=== PATIENT | female | born 2005 | race Caucasian/White ===

== ENCOUNTER 2025-06-12 20:05 | Inpatient (IN) | payer BC, MEDICAID, SELFPAY ==
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
--- OUTSIDE RECORDS SUMMARY | 2024-07-15 03:30 | XMS_ITS ---
Author Organization [facility] dow[address] Address [address] [place] [address] Care Team Providers Care Fur Remodeler Name Role Phone Elie Landin Unavailable [phone] Elie Landin DO Unavailable Unavailable Encounters Encounter Location Date Provider Diagnosis [facility] [address] [place], [place] [id number] 07/15/2024 Elie Landin Plan Of Treatment No Information Progress Notes * Krista MULLERDOB:[birth year] (20 yo F)Acc No.[id number]:07/15/2024 Patient: Krista JIM Provider: Sarah Landin DO :2005 A ge:19 Y S ex:Female Date:07/15/2024 Phone: Address:[address] [place] [address] [place], [id number] * * Electronic signature of Elie Landin DO on 06/12/2025 at 08:13 PM CDT Sign off status: Pending * Provider: Sarah Landin DO Date: 1 Generated for Gloriai ng/Famariyag/eTransmitting on: 0 06/12/2025 08:13 PM CDT
--- OUTSIDE RECORDS SUMMARY | 2024-07-16 10:15 | XMS_ITS ---
Author Organization [facility] Address [address] [place] [address] Care Team Providers Care Linen Aide Name Role Phone Elie Landin Unavailable [phone] Elie Landin DO Unavailable Encounters Encounter Location Date Provider Diagnosis OR 07/16/2024 Elie Landin Plan Of Treatment No Information Progress Notes * Krista MULLERDOB:[birth year] (20 yo F)Acc No.[id number]:07/16/2024 Patient: Janine LUJANLoren Krista Provider: Sarah Landin DO :2005 A ge:19 Y S ex:Female Date:07/16/2024 Phone: Address:[address] [place] [address] [place], [place]-[id number] * * Electronic signature of Elie Landin DO on 06/12/2025 at 08:13 PM CDT Sign off status: Pending * Provider: Sarah Landin DO Date: 1 Generated for Massimo ng/Famariyag/eTransmitting on: 0 06/12/2025 08:13 PM CDT
--- OUTSIDE RECORDS SUMMARY | 2024-08-06 05:45 | XMS_ITS ---
Author Organization [facility] Address [address] [place] [address] Care Team Providers Care Ladle Handler Name Role Phone Elie Landin Unavailable [phone] Elie Landin DO Unavailable Encounters Encounter Location Date Provider Diagnosis [facility] [place] [address] 08/06/2024 Elie Landin Plan Of Treatment No Information Progress Notes * Krista GIBSONDOB:[birth year] (20 yo F)Acc No.[id number]:08/06/2024 Patient: Krista JIM Provider: Sarah Landin DO :2005 A ge:19 Y S ex:Female Date:08/06/2024 Phone: Address:[address] [place] [address] [id number] Subjective: * Chief Complaints: * * Medical History: Objective: * Vitals: Assessment: Plan: * Treatment: * * Electronic signature of Elie Landin DO on 06/12/2025 at 08:13 PM CDT Sign off status: Pending * Provider: Sarah Landin DO Date: 10/06/2023 Generated for Massimo heller/Famariyag/eTransmitting on: 0 06/12/2025 08:13 PM CDT
[2025-06-12 20:06] VITALS: BP 124/78; PULSE 115; RESP 16; TEMP 36.5; O2SAT 97; BMI 43.2
--- NOTE | 2025-06-12 20:11 | XRR_ITS ---
PROCEDURE INFORMATION: Exam: XR Abdomen Exam date and time: 06/12/2025 8:26 PM Age: 20 years old Clinical indication: Other: Foreign body; Additional info: Fb TECHNIQUE: Imaging protocol: Radiologic exam of the abdomen. Views: Frontal supine view of the abdomen. 1 View. COMPARISON: CR (CHEST, ) 06/12/2025 8:24 PM FINDINGS: Heart/Mediastinum: A 6.4 cm radiopaque foreign body is seen in the region of the gastric lumen, just beyond the GE junction. Gastrointestinal tract: Normal. No bowel dilation. Bones/joints: Unremarkable. XR/XR KUB [id number] IMPRESSION: Retained gastric radiopaque foreign body, likely correlating to the provided clinical history of swallowed nail clippers. Gastrointestinal consultation and direct visualization via endoscopy is warranted.
--- NOTE | 2025-06-12 20:11 | XRR_ITS ---
PROCEDURE INFORMATION: Exam: XR Chest Exam date and time: 06/12/2025 8:24 PM Age: 20 years old Clinical indication: Other: Foreign body; Additional info: Fb TECHNIQUE: Imaging protocol: Radiologic exam of the chest. Views: 1 view. COMPARISON: No relevant prior studies available. FINDINGS: Lungs: Unremarkable. No consolidation. Pleural spaces: Unremarkable. No pleural effusion. No pneumothorax. Heart/Mediastinum: Unremarkable. No cardiomegaly. Bones/joints: Unremarkable. Soft tissues: No radiopaque foreign body is identified within the imaged chest. XR/XR chest 1V portable [id number] IMPRESSION: 1. No retained radiopaque foreign bodies. Recommend KUB for evaluation of the upper/lower GI tract. 2. No acute pulmonary process.
--- NOTE | 2025-06-12 20:13 | W.ED.PSYCHS ---
HPI - Psych General: Chief Complaint: Psychiatric Symptoms Stated Complaint: SI Time Seen by Provider: 06/12/25 20:06 Source: patient Mode of arrival: ambulatory Limitations: no limitations History of Present Illness: 20-year-old female who is here with suicidality. States she is a good Yazdanism and gotten kicked out and is having suicidal thoughts she states she had swallowed some nail clippers trying to harm herself. She denies any previous psych admissions denies any worse improved factors. Associated symptoms: Reports depression and suicidal ideation Related Data Allergies Allergy/AdvReac Type Severity Reaction Status Date / Time acetaminophen (From Tylenol) Allergy Unknown Verified 06/12/25 20:15 hydroxyzine (From Vistaril) Allergy Unknown Verified 06/12/25 20:15 ibuprofen (From Motrin) Allergy Unknown Verified 06/12/25 20:14 morphine Allergy Unknown Verified 06/12/25 20:14 Review of Systems Const: Denies: fever(s), chills, body aches or change in appetite ENMT: Denies: throat pain or dental pain Card: Denies: chest pain Resp: Denies: dyspnea GI: Denies: abdominal pain, nausea, vomiting or diarrhea Musc: Denies: neck pain or back pain Skin/Breast: Denies: rash Neuro: Denies: headache(s) Psych: Reports: depression and suicidal ideation Physical Exam Const: COMMON NORMALS: no acute distress, patient oriented x3 and healthy appearing HENMT: COMMON NORMALS: normocephalic and atraumatic HEAD & SCALP: normocephalic and atraumatic Eye: COMMON NORMALS: conjunctivae normal CONJUNCTIVA: Yes conjunctivae normal Neck/C-Spine: COMMON NORMALS: full ROM and supple Chest: COMMONS NORMALS: normal inspection of the chest Resp: COMMON NORMALS: normal respiratory effort Cardio: COMMON NORMALS: regular rate RATE: regular rate Extremity: COMMON NORMALS: normal to inspection and full ROM Neuro: COMMON NORMALS: patient oriented x3, moves all extremities and no focal motor deficits Psych: COMMON NORMALS: mental status grossly normal, Normal thought process present and cooperative THOUGHT PROCESS: Normal thought process present THOUGHT CONTENT: Yes Suicidality present Skin: COMMON NORMALS: no rashes or lesions noted and no wounds GENERAL SKIN EXAM: no rashes or lesions noted Course Vital Signs: Vital signs: Vital Signs Temperature 97.7 F 06/12/25 20:06 Pulse Rate 115 H 06/12/25 20:06 Respiratory Rate 16 06/12/25 20:06 Blood Pressure 124/78 06/12/25 20:06 Pulse Oximetry 97 06/12/25 20:06 Oxygen Delivery Me thod Room Air 06/12/25 20:06 MDM - Psych Medical Decision Making Patient presents here with suicidal ideations she is medically cleared x-ray KUB does show foreign body likely nail couplers is already in her intestine she should be able to pass this spoke to psychiatrist will admit Medical Records I reviewed the patient's medical records. Lab Data I reviewed the patient's lab results. 06/12/25 20:15 06/12/25 20:15 Laboratory Results WBC 6.56 10^3/uL (4.5-13.0) 06/12/25 20:15 RBC 3.80 10^6/uL (3.85-5.65) L 06/12/25 20:15 Hgb 10.60 g/dL (12.4-14.8) L 06/12/25 20:15 Hct 33.5 % (36-47) L 06/12/25 20:15 MCV 88.2 fl (85-98) 06/12/25 20:15 MCH 27.9 pg (27-33) 06/12/25 20:15 MCHC 31.6 g/dL (30-55) 06/12/25 20:15 RDW 13.9 % (12.1-15.1) 06/12/25 20:15 Plt Count 211 10^3/cmm (157-399) 06/12/25 20:15 MPV 9.9 fL (7.4-10.4) 06/12/25 20:15 Neut % (Auto) 55.2 % 06/12/25 20:15 Lymph % (Auto) 32.3 % 06/12/25 20:15 [place]ock[place] % (Auto) 9.6 % 06/12/25 20:15 Eos % (Auto) 2.1 % 06/12/25 20:15 Baso % (Auto) 0.5 % 06/12/25 20:15 Neut # (Auto) 3.62 10^3/uL (1.8-8.0) 06/12/25 20:15 Lymph # (Auto) 2.1 10^3/uL (1.5-6.5) 06/12/25 20:15 [place] # (Auto) 0.6 10^3/uL (0.2-0.9) 06/12/25 20:15 Eos # (Auto) 0.1 10^3/uL (0.0-0.8) 06/12/25 20:15 Baso # (Auto) 0.0 10^3/uL (0.0-0.1) 06/12/25 20:15 Nucleated RBC % (auto) 0 % 06/12/25 20:15 Nucleated RBCs # 0.0 /100WBC 06/12/25 20:15 All radiology interpretation(s) finalized by discharge ED provider radiology interpretation(s): xr kub: fb noted Discharge Plan Discharge Patient Disposition: Admitted As Inpatient Clinical Impression: Suicidal ideation, Foreign body, swallowed Condition: Stable Coding Level of Care Code ED Account Development Manager for Javier Belle
--- OUTSIDE RECORDS SUMMARY | 2025-06-12 20:13 | XMS_ITS | Patient Health Record ---
Author Organization [facility] dow[address] Address [address] [place] [address] Care Team Providers Care Leather Shaver Name Role Phone Elie Landin Unavailable [phone] Elie Landin DO Unavailable Unavailable Reason For Referral No Information Encounters Encounter Location Date Provider Diagnosis [facility] [address] [place], [place] [id number] 07/15/2024 Elie Landin OR 07/16/2024 Elie Landin Plan Of Treatment No Information Insurance Providers Payer Name Payer Address Payer Phone Subscriber Number Group Number Insured Name Patient Relationship to Insured Coverage Start Date Coverage End Date [employer] Out of State [facility] [address] [place] [address] [id number] Krista Muller Self - patient is the insured
--- OUTSIDE RECORDS SUMMARY | 2025-06-12 20:13 | XMS_ITS | Patient Health Record ---
Author Organization Main ([facility]) [facility] [place] Address [address] [place] [address] Care Team Providers Care Garland Machine Operator Name Role Phone ALFREDO CARRANZAORAH Primary Care Provider Allergies No Known Allergies Reason For Referral No Information Social History Tobacco Use: Social History Observation Description Date Details (start date - stop date) Never Smoker NA - NA Social History [place] Social Info Question Answer Notes Highest Level of Education - High School Medications Reviewed - Yes Adopted - No Eating Disorder History - No Depression History of Suicide Attempt No Current Suicidal Ideation No SI Apr 2022 - April 2023 Homicidal Ideation No attempts to h arm mother father and stepfather March 2023 by kicking scratching and pushing History of Self Harm No attempts to harm self January through April 2023 Do you sleep well? - No Hours per night 6 Trouble Initiating Sleep Yes Trouble Maintaining Sleep Yes Nightmares/Night Terrors No History of Head Concussions - No Last Physical - Within Last 1 Year Learning or Development Disabilities - No 0 Para 0 Sexually Active No Contraception Yes used contr ol pills to improve mood Vaginal Discharge No Concerned about STIs No Date of Last Pap never had pap s mear Gynecological/Pap Exam Recommended No Employed - No History of Fractures - No Trouble with Vision or Hearing Barriers of communications? No wears glasses when reading Sexual History: Social Info Question Answer Notes Sexual History Had sex in the past 12 months (vaginal, oral, or anal)? No Have you ever had a Sexually transmitted disease ? No Last menstrual period 04/19/2023 Drugs/Alcohol: Social Info Question Answer Notes Drugs Have you used drugs other than those for medical reasons in the past? No Tobacco Use: Social Info Question Answer Notes Tobacco Use/Smoking Are you a: never smoker Problems Problem Type SNOMED Code ICD Code Onset Dates Problem Status W/U Status Risk Notes Problem Nausea (983998731) Nausea (R11.0) Active confirmed Problem Vitamin D deficiency (34638129) Vitamin D deficiency (E55.9) Active confirmed Problem Allergic rhinitis (47397812) Allergic rhinitis, unspecified seasonality, unspecified trigger (J30.9) Active confirmed Problem Right upper quadrant pain (532048028) Right upper quadrant abdominal pain (R10.11) Active confirmed Problem Abdominal pain (07179760) Abdominal pain, unspecified abdominal location (R10.9) Active confirmed Problem Arthralgia of the ankle and/or foot (254865420) Acute right ankle pain (M25.571) Active confirmed Problem Pain of left heel (101927659663147 9) Pain of left heel (M79.672) Active confirmed Problem Sprain of ankle (97065690) Sprain of right ankle, unspecified ligament, initial encounter (S93.401A) Active confirmed Problem Backache (863486968) Mid back pain (M54.9) Active confirmed Problem 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 Problem Depressed mood (finding) (527556231) Sad mood (R45.89) Active confirmed Problem Nervous (R45.0) Active confirmed Problem Anxiousness (92554365) Anxiousness (F41.9) Active confirmed Plan Of Treatment No Information Insurance Providers Payer Name Payer Address Payer Phone Subscriber Number Group Number Insured Name Patient Relationship to Insured Coverage Start Date Coverage End Date [facility] [address] [place] [address] [id number] MARCELLO GIBSONANNA Self - patient is the insured 3 [employer] of [place] [address] [address] [place] [address] [id number] CLEMENTE GIBSON Self - patient is the insured 3 Medical (General) History Medical History History ICD Code right ankle sprain after falling off bed early April 2023 vitiligo Vitamin D deficiency ADHD disruptive mood dysregulation disorder PTSD Surgical History Surgery Date(Month/Year) Tonsillectomy Hospitalization History Reason Date(Month/Year) psychiatric multiple January - April 2023 a nd again when in 8th grade
[2025-06-12 20:26] LABS: Hematocrit 33.5 % (36-47); Hemoglobin 10.60 g/dL (12.4-14.8); Mean Corpuscular HGB Conc 31.6 g/dL (30-55); Mean Corpuscular Hemoglobin 27.9 pg (27-33); Mean Corpuscular Volume 88.2 fl (85-98); Nucleated Red Blood Cells % 0 %; Platelet Count 211 10^3/cmm (157-399); Red Blood Count 3.80 10^6/uL (3.85-5.65); White Blood Count 6.56 10^3/uL (4.5-13.0)
--- NOTE | 2025-06-12 20:37 | PC.NURSE ---
Pt was read her 96 hour rights at this time. security present
--- NOTE | 2025-06-12 20:40 | PC.NURSE ---
Patient changed out of street clothes and placed in green scrubs. All belongings removed from room, labeled, and placed in locker by ER psych rooms. PSA present at bedside.
[2025-06-12 20:43] LABS: Alanine Aminotransferase 13 U/L (0-33); Albumin Level 4.5 g/dL (3.5-5.2); Alkaline Phosphatase 88 U/L (35-105); Anion Gap 14.1 (5-19); Aspartate Amino Transferase 14 U/L (0-32); Blood Urea Nitrogen 9 mg/dL (6-20); Calcium 9.2 mg/dL (8.5-10.5); Carbon Dioxide 25 mmol/L (22-29); Chloride 103 mmol/L (98-107); Creatinine Clr Calc Pharmacy 233.1021; Globulin 2.6 g/dL (1.3-4.6); Glucose 107 mg/dL (65-115); Osmolality Calculated 285 mOsm/kg (285-295); Potassium 4.1 mmol/L (3.5-5.1); Sodium 138 mmol/L (136-145); Total Protein 7.1 g/dL (6.6-8.7)
[2025-06-12 20:44] LABS: Acetaminophen < 5.0 ug/mL (10-30); Alcohol Level < 10 mg/dL (0-10); Salicylate < 0.3 mg/dL (3-10)
[2025-06-12 20:45] LABS: HCG Qualitative Urine. Negative (Negative)
[2025-06-12 20:52] LABS: PCP Screen Urine Negative (Negative)
--- NOTE | 2025-06-12 21:50 | PC.NURSE ---
Report called to Rui in NPU. All questions and concerns were addressed at time of report.
[2025-06-12 22:31] VITALS: BP 135/86; PULSE 98; RESP 18; TEMP 36.3; O2SAT 98
--- NOTE | 2025-06-12 22:47 | PC.NURSE ---
Pt. had a small blood blister on her big toe, right foot,very minor. Pt has acne on bottom and skin was clammy. Pt swallowed a pair of fingernail clippers for what she believed was in a suicide attempt. Pt is expected to pass them through the digestive tract on her own.
--- NOTE | 2025-06-12 22:55 | PC.ADMIT ---
[address] Admission Note: The patient,Krista Muller,20 y/o, was given written information regarding hospital policies, unit procedures and contact persons. Patient's smoking status: . Vital Signs - 8 hr 06/12/25 20:06 06/12/25 22:31 Temperature 97.7 F 97.4 F L Pulse Rate 115 H 98 Respiratory Rate 16 18 Blood Pressure 124/78 135/86 Pulse Oximetry 97 98 Oxygen Delivery Method Room Air Room Air Pt. had a small blood blister on her big toe, right foot,very minor. Pt has acne on bottom and skin was clammy. Pt swallowed a pair of fingernail clippers for what she believed was in a suicide attempt. Pt is expected to pass them through the digestive tract on her own.
--- NOTE | 2025-06-13 02:04 | PC.NURSE ---
Pt was congested and stopped up so i gave her 25mg Benadryl.
[2025-06-13 06:00] VITALS: BP 138/85; PULSE 95; RESP 18; TEMP 36.8; O2SAT 97
[2025-06-13 08:04] VITALS: BP 135/85
--- NOTE | 2025-06-13 08:42 | W.PM.NPUH&PS ---
Providers/Chief Complaint Admitting Physician: Torres Becerra MD Chief Complaint: SI HPI NPU History of Present Illness Krista Muller is a 20 year old female who presented to the emergency department with the following report: Chief Complaint: Psychiatric Symptoms Stated Complaint: SI Time Seen by Provider: 06/12/25 20:06 Source: patient Mode of arrival: ambulatory Limitations: no limitations History of Present Illness: 20-year-old female who is here with suicidality. States she is a good Sabianism and gotten kicked out and is having suicidal thoughts she states she had swallowed some nail clippers trying to harm herself. She denies any previous psych admissions denies any worse improved factors. Associated symptoms: Reports depression and suicidal ideation. She was admitted to the neuropsychiatric unit for definitive treatment of those issues. She is unknown to [facility] psychiatry through inpatient or outpatient services. She has clearly had a history of mental health treatment as her outpatient history shows multiple psychiatric medications including medications for depression, anxiety, PTSD and ADHD. She was evasive with interview essentially saying she did not want to speak with this radio script writer. We discussed the fact that we would need to have a conversation at some point for this radio script writer to understand what the appropriate or necessary interventions should be. She did acknowledge that she was at [facility] and was feeling suicidal over there she reports that it might have something to do with her medication but she could not give or would not give a clear perspective of what exactly happened as far as her medications are concerned. We discussed our need to get some collateral information and may be find someone in her orbit that has some understanding of her history or current functioning. She cut the interview off short before we are able to get a lot of information but agree that we will be able to speak in the morning. We discussed the risks, benefits and alternatives of us trying to get information and to restart medications as appropriate and she understood and agreed to proceed as is documented in this note. Meds NPU Home Medications ?Medication ?Instructions ?Recorded ?Confirmed ?Last Taken ?Type atomoxetine 60 mg capsule 60 mg PO 1XD Unobtainable 06/13/25 06/13/25 Unknown History clomipramine 75 mg capsule 75 mg PO 2XD PRN Anxiety 06/13/25 06/13/25 Unknown History clonidine HCl 0.1 mg tablet 0.1 mg PO 1XD 06/13/25 06/13/25 Unknown History famotidine 20 mg tablet 20 mg PO 1XD 06/13/25 06/13/25 Unknown History gabapentin 400 mg capsule 400 mg PO 1XD 06/13/25 06/13/25 Unknown History glipizide 5 mg tablet, extended 5 mg PO 1XD 06/13/25 06/13/25 Unknown History release 24 hr lithium carbonate 300 mg capsule 300 mg PO 1XD 06/13/25 06/13/25 Unknown History lurasidone 120 mg tablet 120 mg PO 1XD 06/13/25 06/13/25 Unknown History mirtazapine 15 mg tablet 15 mg PO 1XD 06/13/25 06/13/25 Unknown History oxcarbazepine 300 mg tablet 300 mg PO 1XD 06/13/25 06/13/25 Unknown History pantoprazole 40 mg tablet,delayed 40 mg PO 1XD 06/13/25 06/13/25 Unknown History release prazosin 1 mg capsule 1 mg PO 1XD 06/13/25 06/13/25 Unknown History propranolol 20 mg tablet 20 mg PO 1XD 06/13/25 06/13/25 Unknown History trazodone 50 mg tablet 50 mg PO 1XD 06/13/25 06/13/25 Unknown History Allergies Allergy/AdvReac Type Severity Reaction Status Date / Time acetaminophen (From Tylenol) Allergy Unknown Verified 06/12/25 20:15 adhesive Allergy ALGY-Anaphy Verified 06/12/25 22:29 laxis [place] And Derivatives Allergy ALGY-Anaphy Verified 06/12/25 22:29 laxis hydroxyzine (From Vistaril) Allergy Unknown Verified 06/12/25 20:15 ibuprofen (From Motrin) Allergy Unknown Verified 06/12/25 20:14 morphine Allergy Unknown Verified 06/12/25 20:14 pineapple Allergy ALGY-Anaphy Verified 06/12/25 22:29 laxis pork derived (porcine) Allergy ALGY-Anaphy Verified 06/12/25 22:29 laxis Pork/Porcine Containing Allergy ALGY-Anaphy Verified 06/12/25 22:29 Products laxis Mental Status Exam MSE Comments: This is an obese v ersus morbidly obe se white female in hospital scrubs w ith poor grooming and limited eye co ntact. Head shave d except for a seg ment in the back t hat appears she wa s unable to reach. No abnormal move ments except for p sychomotor agitati on. Mostly uncoop erative with exam in mild to moderat e distress. Speec h was normal rate and volume and chi ldlike with some p rolonged pauses be tween answers. Mo od described as de pressed and anxiou s, affect congruen t and irritable. Thought process li near. Thought con tent: Patient william ed suicidal or ian icidal ideation, t here were no delus ions reported or n oted, she denied a uditory or visual hallucinations. A ttention and robles ntration appeared limited and memory appeared mostly u nreliable but none were formally enzo fuad. She alert an d oriented x perso n and place. Insi ght and judgment a ppeared limited, i mpulse control imp aired. Intellectu al ability limited versus impaired Vitals/I&O/Wt Last Vital Signs Temp 98.3 F 06/13/25 06:00 Pulse 95 06/13/25 06:00 Resp 18 06/13/25 06:00 BP 135/85 06/13/25 08:04 Pulse Ox 97 06/13/25 06:00 O2 Del Method Room Air 06/13/25 06:00 Weight last 48 hrs Weight 140.614 kg Data NPU 06/12/25 20:15 06/12/25 20:15 A&P Assessment and plan 1. Suicidal ideation: 2. Mild intellectual disability: 3. Depression: 4. Anxiety: Plan: Patient is a 20-year-old white female with no history of mental health in our system and is a poor historian with likely intellectual disability who presents with depression and suicidality, homeless at [facility], with no signs of active addiction and without a clear indication of what has led to her situation. 1. Continue current medications and make changes as indicated 2. Engage patient in individual group and milieu therapy. 3. Continue every 15 minute checks for safety. 4. Evaluate against the backdrop of the 96-hour hold. 5. Obtain collateral information. 6. Current sober living treatment after discharge at the highest level care to which she is willing to commit. PDMP PDMP Reviewed: Not Reviewed Involuntary Hold Information Hold Status: Legal Status: 96 Hour Hold Attestations NPU Medical Necessity Statement*: Inpatient hospitalization is medically necessary and the clinically appropriate intervention at this time. We will occasions to make changes as indicated. The patient will be in the hospital for over 2 midnights with a likely length of stay of 5-7 days. Coding Level of Care Code Acute Code for Chg Fwd Diagnoses Suicidal ideation R45.851 Mild intellectual disability F70 Depression F32.A Anxiety F41.9
[2025-06-13 12:49] VITALS: BP 112/58; PULSE 85; RESP 16; TEMP 36.4; O2SAT 97
--- NOTE | 2025-06-13 18:42 | PC.NURSE ---
Pt. came up to the RETENTION REPRESENTATIVE with a piece of paper she had written on stating that she had swallowed a pt. pen and the battery out of the remote control. Signee went down to pt.'s room and asked pt. to go to the bench by the nurses station so she could be seen. At that time pt. became argumentative and zuniga stating that she did not swallow a battery that it could not be proven. Dr. Becerra informed of what pt. stated she did. fountain supervisor informed and pt. will be getting a one on one sitter due to the self harm incident.
[2025-06-13 20:53] VITALS: BP 103/68; PULSE 96; RESP 18; TEMP 36.4; O2SAT 97
[2025-06-14 06:34] VITALS: BP 126/83; PULSE 107; RESP 18; TEMP 37; O2SAT 97
--- NOTE | 2025-06-14 09:59 | NUR.SHIFT ---
Pt states that she slept like a baby last night. She rates her anxiety a 0/10 and her depression a 8/10, states that she is really missing her mother. She endorses SI and her plan would be to swallow something. She states that she swallowed a battery and a safety pen yesterday and another pt did come to the window this am because the remote was missing a battery. She denies HI or hallucinations. She rates her back pain an 8/10. She is calm and cooperative on assessment, but she is very intrusive and demanding with staff.
--- NOTE | 2025-06-14 11:29 | XRR_ITS ---
PROCEDURE INFORMATION: Exam: XR Abdomen Exam date and time: 06/14/2025 12:53 PM Age: 20 years old Clinical indication: Abdominal pain; Prior surgery; Surgery date: 6+ months; Surgery type: Gb, appy; Reports of swallowing nail clippers, battery, and a pen per PT; Epigastric pain; Additional info: Report of ingesting nail clippers, battery, and a pen TECHNIQUE: Imaging protocol: Radiologic exam of the abdomen. Views: Frontal supine view of the abdomen. 1 View. COMPARISON: CR (ABDOMEN, ) 06/12/2025 8:26 PM FINDINGS: Gastrointestinal tract: Moderate fecal material fills the colon. No bowel dilatation. Intraperitoneal space: 7.3 cm rectangular metallic foreign body is located in the left lower quadrant, overlying the distal descending colon. 4.7 cm cylindrical metallic foreign body lies in the right upper quadrant, approximating the region of the pylorus. A 12 mm linear metallic structure overlies the body of the stomach. The small linear structure may represent the tip of a ball point pen. Surgical clips are again noted in the right upper quadrant. Bones/joints: The osseous structures are unremarkable. XR/XR KUB [id number] IMPRESSION: 1. Metallic nail clippers are located in the left lower quadrant, possibly within the descending colon. 2. Cylindrical foreign body overlying the distal stomach, compatible with reported ingested battery. 3. Small metallic density in the body of the stomach which could represent a component of a pen. 4. No evidence for bowel obstruction at this time.
--- NOTE | 2025-06-14 13:03 | PC.NURSE ---
Dr. Becerra order a KUB on pt d/t reports of swallowing a battery and an ink pen. Order placed.
[2025-06-14 13:48] VITALS: BP 126/88; PULSE 100; RESP 18; TEMP 37.1; O2SAT 96
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
[2025-06-14 20:22] VITALS: BP 132/81; PULSE 93; RESP 18; TEMP 37; O2SAT 97
[2025-06-14 22:30] VITALS: PULSE 105; RESP 17; O2SAT 99
--- NOTE | 2025-06-15 06:25 | PC.NURSE ---
pt vitals not done, pt refused, resp 16, nurse aware
--- NOTE | 2025-06-15 06:26 | PC.NURSE ---
pt vitals not done, pt refused, nurse aware, resp. 16
[2025-06-15 07:55] VITALS: BP 105/68; PULSE 126; RESP 18; O2SAT 98
[2025-06-15 08:02] VITALS: BP 105/68
[2025-06-15 08:17] LABS: Glucose Urine UA Negative (Normal); Nitrate Urine Negative (Negative); Specific Gravity, Urine 1.017 (1.005-1.030)
[2025-06-15 08:19] LABS: Add Urine Microscopic? YES
--- NOTE | 2025-06-15 12:17 | PM.CONSULT ---
Providers/Reason For Consult Consulting Physician/Specialty*: Dr Nikolai Boogie Reason for Consult*: Patient swallowed foreign body Attending Physician: Torres Becerra MD History of Present Illness History of Present Illness Krista Muller is a 20 year old female and that being consulted for evaluation for swallowing foreign objects. According to history she swallowed a nail clipper 3 days ago and then a battery yesterday evening. She was admitted to the [facility] for evaluation for history of neuropsychiatric disorders. She has no complaints of abdominal pain. No changes in her bowel movements and denies any nausea or vomiting. Denies any abdominal pain. No fevers or chills. No other complaints at this time. No acute events overnight. Review of Systems Const: Denies: fever(s), chills, body aches or change in appetite ENMT: Denies: throat pain or dental pain Card: Denies: chest pain Resp: Denies: dyspnea GI: Denies: abdominal pain, nausea, vomiting or diarrhea Musc: Denies: neck pain or back pain Skin/Breast: Denies: rash Neuro: Denies: headache(s) Psych: Reports: depression and suicidal ideation Medications/Allergies Home Medications ?Medication ?Instructions ?Recorded ?Confirmed ?Last Taken ?Type atomoxetine 60 mg capsule 60 mg PO 1XD Unobtainable 06/13/25 06/13/25 Unknown History clomipramine 75 mg capsule 75 mg PO 2XD PRN Anxiety 06/13/25 06/13/25 Unknown History clonidine HCl 0.1 mg tablet 0.1 mg PO 1XD 06/13/25 06/13/25 Unknown History famotidine 20 mg tablet 20 mg PO 1XD 06/13/25 06/13/25 Unknown History gabapentin 400 mg capsule 400 mg PO 1XD 06/13/25 06/13/25 Unknown History glipizide 5 mg tablet, extended 5 mg PO 1XD 06/13/25 06/13/25 Unknown History release 24 hr lithium carbonate 300 mg capsule 300 mg PO 1XD 06/13/25 06/13/25 Unknown History lurasidone 120 mg tablet 120 mg PO 1XD 06/13/25 06/13/25 Unknown History mirtazapine 15 mg tablet 15 mg PO 1XD 06/13/25 06/13/25 Unknown History oxcarbazepine 300 mg tablet 300 mg PO 1XD 06/13/25 06/13/25 Unknown History pantoprazole 40 mg tablet,delayed 40 mg PO 1XD 06/13/25 06/13/25 Unknown History release prazosin 1 mg capsule 1 mg PO 1XD 06/13/25 06/13/25 Unknown History propranolol 20 mg tablet 20 mg PO 1XD 06/13/25 06/13/25 Unknown History trazodone 50 mg tablet 50 mg PO 1XD 06/13/25 06/13/25 Unknown History Allergies Allergy/AdvReac Type Severity Reaction Status Date / Time acetaminophen (From Tylenol) Allergy Unknown Verified 06/12/25 20:15 adhesive Allergy ALGY-Anaphy Verified 06/12/25 22:29 laxis [place] And Derivatives Allergy ALGY-Anaphy Verified 06/12/25 22:29 laxis hydroxyzine (From Vistaril) Allergy Unknown Verified 06/12/25 20:15 ibuprofen (From Motrin) Allergy Unknown Verified 06/12/25 20:14 morphine Allergy Unknown Verified 06/12/25 20:14 pineapple Allergy ALGY-Anaphy Verified 06/12/25 22:29 laxis pork derived (porcine) Allergy ALGY-Anaphy Verified 06/12/25 22:29 laxis Pork/Porcine Containing Allergy ALGY-Anaphy Verified 06/12/25 22:29 Products laxis Current Medications Generic Name Dose Route Start Last Admin Trade Name Freq PRN Reason Stop Dose Admin Albuterol Sulfate 2.5 mg 06/14/25 22:34 06/14/25 22:30 Albuterol 2.5 Mg/0.5 Ml Neb INHALATION 2.5 mg Q6H.RESP PRN Administration SHORTNESS OF BREATH Clonidine HCl 0.1 mg 06/13/25 09:00 06/15/25 08:02 Clonidine 0.1 Mg Tablet PO 0.1 mg DAILY RUDDY Administration Diphenhydramine HCl 25 mg 06/13/25 00:49 06/15/25 07:57 Diphenhydramine 25 Mg Capsule PO 25 mg Q4H PRN Administration ITCHING Diphenhydramine HCl 50 mg 06/13/25 19:39 06/14/25 20:02 Diphenhydramine 50 Mg Capsule PO 50 mg Q4H PRN Administration AGITATION Famotidine 20 mg 06/13/25 09:00 06/15/25 08:02 Famotidine 20 Mg Tablet PO 20 mg DAILY RUDDY Administration Gabapentin 400 mg 06/13/25 09:00 06/15/25 08:02 Gabapentin 400 Mg Capsule PO 400 mg DAILY RUDDY Administration Haloperidol 5 mg 06/12/25 22:31 06/15/25 07:57 Haloperidol 5 Mg Tablet PO 5 mg Q4H PRN Administration AGITATION [place] Carbonate 300 mg 06/13/25 09:00 06/15/25 08:02 [place] Carbonate 300 Mg Capsule PO 300 mg DAILY RUDDY Administration Lorazepam 2 mg 06/13/25 19:38 06/15/25 07:57 Lorazepam 2 Mg Tablet PO 2 mg Q4H PRN Administration ANXIETY Lurasidone HCl 120 mg 06/13/25 09:00 06/15/25 08:00 Lurasidone 80 Mg Tablet PO 120 mg DAILY RUDDY Administration Mirtazapine 15 mg 06/13/25 09:00 06/15/25 08:02 Mirtazapine 15 Mg Tablet PO 15 mg DAILY RUDDY Administration Non-Formulary Medication 60 mg 06/13/25 09:00 06/15/25 12:14 Atomoxetine PO Not Given DAILY RUDDY Non-Formulary Medication 5 mg 06/13/25 09:00 06/15/25 08:04 Glipizide PO 5 mg DAILY RUDDY Administration Olanzapine 5 mg 06/12/25 22:31 06/14/25 20:02 Olanzapine 5 Mg Odt PO 5 mg Q4H PRN Administration Agitation/Psychosis Oxcarbazepine 300 mg 06/13/25 09:00 06/15/25 08:02 Oxcarbazepine 300 Mg Tablet PO 300 mg DAILY RUDDY Administration Pantoprazole Sodium 40 mg 06/13/25 09:00 06/15/25 08:[address] 40 Mg Tablet PO 40 mg DAILY RUDDY Administration Prazosin HCl 1 mg 06/13/25 09:00 06/15/25 08:02 Prazosin 1 Mg Capsule PO 1 mg DAILY RUDDY Administration Propranolol HCl 20 mg 06/13/25 09:00 06/15/25 08:00 Propranolol 20 Mg Tablet PO 20 mg DAILY RUDDY Administration Trazodone HCl 50 mg 06/12/25 22:31 06/14/25 21:05 Trazodone 50 Mg Tablet PO 50 mg BEDTIME PRN Administration SLEEP Trazodone HCl 50 mg 06/13/25 21:00 06/15/25 08:04 Trazodone 50 Mg Tablet PO 50 mg DAILY RUDDY Administration PFSH Acute Female Reproductive History: Date of last menstrual period: 06/05/25 Vitals/I&O/Wt Last Vital Signs Temp 98.6 F 06/14/25 20:22 Pulse 126 H 06/15/25 07:55 Resp 18 06/15/25 07:55 BP 105/68 06/15/25 08:02 Pulse Ox 98 06/15/25 07:55 O2 Del Method Room Air 06/15/25 07:55 Physical Exam Narrative: General alert and oriented x 3 Cardiovascular regular rate and rhythm Lungs clear to auscultation bilaterally Abdomen soft, obese, nontender nondistended. Extremities no swelling and distal pulses intact bilaterally m Data 06/12/25 20:15 06/12/25 20:15 A&P Assessment and plan 1. Foreign body, swallowed: No acute surgical intervention. Continue to follow the progress of the foreign bodies with KUB x-rays. Will give 2 doses of milk of magnesia to encourage passage to the GI tract. Will recheck KUB in the morning to see progress through the GI tract. Please call with any worsening symptoms or new complaints. PDMP PDMP Reviewed: Not Reviewed Coding Level of Care Code Acute Code for Chg Fwd Diagnoses Foreign body, swallowed T18.9XXA
[2025-06-15 14:00] VITALS: BP 118/70; PULSE 104; RESP 18; TEMP 36.6; O2SAT 95
[2025-06-15] MEDS: haloperidol inj 5 mg/mL INJ 1 mL IM (14:47)
[2025-06-15] MEDS: LORazepam 1 MG/0.5 ML injection 2 MG IM (14:48)
[2025-06-15] MEDS: diphenhydrAMINE 50 mg/mL SDV 1mL IM (14:49)
--- NOTE | 2025-06-15 14:50 | PC.NURSE ---
Patient became verbally agitated with staff after staff limited snacks due to patient having already having 5 snacks. Patient called nurse a bitch and then became upset that nurse followed her to the bathroom continuing to shout profanity. Patient received Haldol 5 mg IM, Lorazepam 2 mg IM in left upper arm. She received diphehydramine 50 mg IM right deltoid. Patient verbalized that the only reason she was upset is that she is starting her monthly.
--- NOTE | 2025-06-15 17:47 | PC.NURSE ---
Patient became verbally agitated with staff when staff attempted to intervene her from swallowing a spoon that she had had in her cup. Patient attempted to bang her head in the wall saying i just want to staff protect her head and verbally de escalated patient. Patient then stated her stomach was hurting bad. A focused assessment was performed with the patient complaining of pain with moderate palpation below the umbilicus and rlq. Patient denied rebound tenderness. Patient educated to limit her intake of solids and increase her fluids until she is able to have a good bowel movement. Patient now refuses to acknowledge this RN. Notified patient of physician order to give suppository to promote bowel movement. Patient does not acknowledge understanding and is acting like she is sleeping.
--- NOTE | 2025-06-15 17:49 | PC.NURSE ---
Items removed from bedroom for pt's safety, all books and cup with lid and straw. Pt attempted to swallow her spoon at dinner time with the 1:1 sitter present.
[2025-06-15 20:23] VITALS: BP 144/64; PULSE 93; RESP 16; O2SAT 97
--- NOTE | 2025-06-15 20:50 | PC.NURSE ---
Patient arrived via wheelchair at 20:48 from the E.D. accompanied by Kike from [facility] and Pieter Lucas R.N. Pieter Haque transferred her to the [facility]. She then proceeded to(according to security video review) lower herself to the floor on to her right hip. She then assumed a supine position and began to flail around as if having a seizure. The Fall was not witnessed by anyone except possibly Pieter Haque (who was sent home from the E.D. before I had the opportunity to ask if he actually witnessed the fall)I arrived on scene very shortly after CelineRick calvin LPN, CNA arrived. She was flailing on the floor at that time. She then stated I can't move or feel my body . Her demeanor was fearful, anxious and tearful. This episode lasted +/- 10 seconds. I asked her what her name was and she immediately responded Lacy . I took an apical pulse with my stethoscope and got 84 bpm. VS were obtained: BP: 144/64, P: 93, R:16, O2 sat: 97%. She had no S/S of being post ictal, disoriented, in any distress or C/O any discomfort. She resisted standing however after speaking to her for a bit she stood up. Kike and I escorted her to her room and put her in bed. I asked Dr. Becerra if he wanted to order a CT scan of her head (Assuming she had fallen and hit her head) Doc said no need . The [facility] supervisor Elizabeth was on unit when we took her to her room; so she was knowledgeable of the situation. There were no further incidents throughout the evening.
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
[2025-06-16 06:00] VITALS: BP 132/86; PULSE 110; RESP 18; TEMP 36.7; O2SAT 97
[2025-06-16 08:29] VITALS: BP 132/86
--- NOTE | 2025-06-16 09:33 | XRR_ITS ---
PROCEDURE INFORMATION: Exam: XR Abdomen Exam date and time: 06/16/2025 9:54 AM Age: 20 years old Clinical indication: Screening exam; Other: Foreign bodies; Prior surgery; Surgery date: 6+ months; Surgery type: Gb, appy; Additional info: Eval foreign bodies; PT reports eating nail clippers, battery, and inside of ink pen on 06/12; Please compare to previous images TECHNIQUE: Imaging protocol: Radiologic exam of the abdomen. Views: Frontal supine view of the abdomen. 1 View. COMPARISON: CR XR KUB [id number] 06/14/2025 12:53 PM FINDINGS: Tubes, catheters and devices: Two standard appearing batteries project in the left upper quadrant, they are probably AA batteries and are probably within the stomach. Only 1 upper abdominal battery was visible before. I assume a least 1 of these batteries is newly ingested. Gastrointestinal tract: The metallic point of the ballpoint pen is also seen in the left upper quadrant, also probably within the stomach. The location of this is unchanged from before. Organs: Cholecystectomy. Bones/joints: Unremarkable. XR/XR KUB [id number] IMPRESSION: Ingested foreign material. Some of these appear different than what was seen on 06/14.
--- NOTE | 2025-06-16 10:05 | PC.NURSE ---
OFF UNIT FOR KUB, ESCORTED BY SECURITY & NPU [employer] FINISHER
--- NOTE | 2025-06-16 10:17 | PC.NURSE ---
RETURN TO UNIT FROM [facility]
--- NOTE | 2025-06-16 10:44 | P.PN_ITS ---
Subjective 2 Subjective: Patient seen and examined. Feeling okay today with minimal abdominal pain. On x-ray it appears she has passed the fingernail clippers and the batteries have made a significant advancement to the GI tract based on the KUB this morning. Denies any nausea or vomiting. No acute events overnight. Vitals/I&O/Wt Last Vital Signs Temp 98.1 F 06/16/25 06:00 Pulse 110 H 06/16/25 06:00 Resp 18 06/16/25 06:00 BP 132/86 06/16/25 08:29 Pulse Ox 97 06/16/25 06:00 O2 Del Method Room Air 06/16/25 06:00 Physical Exam 2 Narrative: General alert and oriented x 3 Cardiovascular regular rate and rhythm Lungs clear to auscultation bilaterally Abdomen soft, obese, nontender nondistended. Extremities no swelling and distal pulses intact bilaterally m Data 06/12/25 20:15 06/12/25 20:15 A&P Assessment and plan 1. Foreign body, swallowed: No acute surgical intervention. Continue bowel regimen as previously discussed. Milk of magnesia twice daily and repeat KUB in the morning to make sure that she has passed all ingested objects. Fingernail clippers appear to have passed to the GI tract. Serial abdominal exams but overall minimal abdominal pain. Okay for general diet as tolerated. Please call or message with any new questions or concerns. PDMP PDMP Reviewed: Not Reviewed Attestations 2 Medical Necessity Statement*: Patient admitted under neuropsych team and care management per that team Coding Level of Care Code Acute Code for Chg Fwd Diagnoses Foreign body, swallowed T18.9XXA
--- NOTE | 2025-06-16 13:44 | PC.NURSE ---
Patient given PRN milk of magnesia, 30 ml of molasses to facilitate bowel movement. Fluids encouraged
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
[2025-06-16 20:00] VITALS: BP 108/70; PULSE 111; RESP 18; TEMP 36.8; O2SAT 99
--- NOTE | 2025-06-16 23:04 | PC.NURSE ---
rounding pt currently resting with eyes closed in no acute distress. sitter at bedside.
[2025-06-17 06:00] VITALS: BP 107/74; PULSE 96; RESP 16; TEMP 37.1; O2SAT 98
[2025-06-17 08:50] VITALS: BP 107/74
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
[2025-06-17 14:00] VITALS: PULSE 113; RESP 18; O2SAT 96
--- NOTE | 2025-06-17 14:42 | PC.NURSE ---
Dr. Becerra gave the verbal order to DC one to one sitter.
[2025-06-17 16:38] VITALS: BP 134/90
--- NOTE | 2025-06-17 17:35 | PC.NURSE ---
pt. took a shower earlier in the day and pt. just asked to take another shower. Signee informed pt. she had one earlier in the day and to wait until the discharges and new admit was done and pt. got mad and stomped off to her room. [employer] went to check on pt and pt. said to go away and leave her alone.
[2025-06-17 20:29] VITALS: BP 140/81; PULSE 102; RESP 19; TEMP 36.6; O2SAT 98
[2025-06-17] MEDS: sennosides-docusate Tablet 2 TAB PO (21:58)
[2025-06-18 06:00] VITALS: BP 112/74; PULSE 79; RESP 20; TEMP 36.7; O2SAT 98
[2025-06-18 07:43] VITALS: PULSE 126; RESP 15; O2SAT 99
--- NOTE | 2025-06-18 11:30 | NUR.SHIFT ---
Pt states that she only got 3 hours of sleep last night. Rates her anxiety and depression a 0/10. No reports of SI/HI or hallucinations. Rates her Lt little toe pain a 8/10. She is calm and cooperative on assessment. She is excited to d/c to [place] today.
[2025-06-18 13:57] VITALS: BP 112/74; PULSE 126; RESP 15; TEMP 36.7; O2SAT 98
[2025-06-18 13:59] VITALS: BP 112/74; PULSE 79; RESP 20; TEMP 36.7; O2SAT 98
== END 2025-06-18 13:58 | disposition home or self-care (01) | DRG 881 ==
LOC: ER 20:44 → NP 21:28
PROVIDERS: Admitting Provider Psychiatry & Neurology Psychiatry; Emergency Provider Emergency Medicine; Visit Provider Psychiatry & Neurology Psychiatry
DX: F32.A Depression, unspecified (principal); R45.851 Suicidal ideations; Z68.41 Body mass index [BMI] 40.0-44.9, adult; Z59.01 Sheltered homelessness; F84.0 Autistic disorder; T18.3XXA Foreign body in small intestine, initial encounter; F34.81 Disruptive mood dysregulation disorder; F41.9 Anxiety disorder, unspecified; F43.10 Post-traumatic stress disorder, unspecified; Z62.811 Personal history of psychological abuse in childhood; Z62.810 Personal history of physical and sexual abuse in childhood; F90.9 Attention-deficit hyperactivity disorder, unspecified type; E66.01 Morbid (severe) obesity due to excess calories; F70 Mild intellectual disabilities; F42.9 Obsessive-compulsive disorder, unspecified; Z72.0 Tobacco use; F22 Delusional disorders; F44.81 Dissociative identity disorder; W44.8XXA Other foreign body entering into or through a natural orifice, initial encounter; Z79.84 Long term (current) use of oral hypoglycemic drugs
CPT/HCPCS: 36415; 71045; 74018; 80053; 80306; 80307; 81001; 81025; 85025; 94640; 96372; 97150; 97165; 99285; J1200; J1630; J2060; J7611; J9999; Q0162; Q0163